=== PATIENT | female | born 1990 | race African-American/Black ===

== ENCOUNTER 2018-12-16 23:32 | Emergency (ER) | payer MEDICAID ==
[~2018-12-16] VITALS: Ht 162.6 cm; Wt 81.6 kg
[2018-12-17] MEDS ORDERED: LACTULOSE 20Gm/30ML SOLN PO ONE (02:00)
[2018-12-17] MEDS ORDERED: DexAMETHasone SOD PHOS 10MG/1ML VIAL INJ IM ONE (02:00)
[2018-12-17 02:34] VITALS: BP 131/96
== END 2018-12-17 02:18 | disposition home or self-care (01) ==
LOC: ER 23:38
DX: K59.00 Constipation, unspecified (principal); J06.9 Acute upper respiratory infection, unspecified
CPT/HCPCS: 74022; 96372; 99283; J1100

== ENCOUNTER 2022-12-02 14:00 | Emergency (ER) | payer MEDICAID, OTHER ==
[~2022-12-02] VITALS: Ht 162.6 cm; Wt 81.0 kg
[2022-12-02 14:10] VITALS: BP 150/95
[2022-12-02] MEDS ORDERED: IBUPROFEN 600 MG TAB PO ONE (14:30)
[2022-12-02] MEDS ORDERED: IBUP600T28 PO (16:38)
[2022-12-02] MEDS ORDERED: CYCL-839 PO (16:38)
[2022-12-02] MEDS ORDERED: ACETAMINOPHEN 500 MG TAB PO ONE (16:45)
== END 2022-12-02 18:30 | disposition home or self-care (01) ==
LOC: EDBD 14:00 → ER 14:00
DX: S16.1XXA Strain of muscle, fascia and tendon at neck level, initial encounter (principal); S46.912A Strain of unspecified muscle, fascia and tendon at shoulder and upper arm level, left arm, initial encounter; Z88.6 Allergy status to analgesic agent; V89.2XXA Person injured in unspecified motor-vehicle accident, traffic, initial encounter; Y93.89 Activity, other specified; Y92.411 Interstate highway as the place of occurrence of the external cause; Y99.8 Other external cause status
CPT/HCPCS: 72040; 73030